=== PATIENT | male | born 1990 | race Two or more races ===

== ENCOUNTER 2024-04-24 23:28 | Emergency (ER) | payer MEDICAID ==
[~2024-04-24] VITALS: Ht 182.9 cm; Wt 83.9 kg
[2024-04-24 23:59] VITALS: BP 152/87; PULSE 93; RESP 16; O2SAT 97
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
== END 2024-04-25 01:07 | disposition home or self-care (01) ==
LOC: ER 23:28
DX: S01.01XA Laceration without foreign body of scalp, initial encounter (principal); Y08.89XA Assault by other specified means, initial encounter; Y93.89 Activity, other specified; Y92.89 Other specified places as the place of occurrence of the external cause; Y99.8 Other external cause status
CPT/HCPCS: 12001